=== PATIENT | male | born 1985 | race Caucasian/White ===

== ENCOUNTER 2018-05-19 09:48 | Emergency (ER) | payer OTHER, MEDICAID ==
[2018-05-19] MEDS ORDERED: ONDANSETRON 4 MG TAB.RAPDIS PO ONE (10:07)
--- NOTE | 2018-05-19 10:10 | ER Document Report ---
ED Medical Screen (RME) - General Chief Complaint: Groin Pain Stated Complaint: GROIN PAIN Time Seen by Provider: 05/19/18 10:01 Primary Care Provider: JAIRO DOVE MD [Primary Care Provider] - Follow up as needed TRAVEL OUTSIDE OF THE [place] IN LAST 30 DAYS: No - HPI Notes: 05/19/18 10:07 Patient is a 32-year-old male with no significant past medical history who presents the emergency department complaining of right testicular/scrotal pain and lower suprapubic pressure with urinary urgency/frequency that began yesterday about 13 hours ago. Patient states that he started feeling some soreness when he was playing softball and was running the bases, but has not noticed any swelling or bulging. He has some associated nausea with the pain, but no vomiting. He is having normal bowel movements. Patient has not had any urethral discharge and has no concern of STD or STI. Denies any headache, fever, URI, sore throat, chest pain, palpitations, syncope, cough, shortness of breath, wheeze, dyspnea, vomiting/diarrhea, or rash. I have treated and performed a rapid initial assessment of this patient. A comprehensive ED assessment and evaluation of the patient, analysis of test results and completion of medical decision making process will be conducted by additional ED providers. PHYSICAL EXAMINATION: GENERAL: Well-appearing, well-nourished and in no acute distress. A&Ox4. Answers questions appropriately. LUNGS: Breath sounds clear to auscultation bilaterally and equal. No wheezes rales or rhonchi. HEART: Regular rate and rhythm without murmurs, rubs, gallops. ABDOMEN: Soft, nondistended abdomen. No guarding, no rebound. Normal bowel sounds present. No CVA tenderness bilaterally. : no obvious urethral discharge or hernia appreciated. + tenderness and mild swelling rt testicle. + tenderness primarily near the epididymal area. No ulcerations, lesions, erythema, or necrosis. No transverse lie and cremasteric appears intact. Extremities: No cyanosis, clubbing, or edema b/l. NEUROLOGICAL: Normal speech, normal gait. PSYCH: Normal mood, normal affect. - Related Data Allergies/Adverse Reactions: No Known Allergies Allergy (Verified 05/19/18 10:01) Past Medical History - Social History Frequency of alcohol use: None Drug Abuse: None Renal/ Medical History: Denies: Hx Peritoneal Dialysis Musculoskeltal Medical History: Reports Hx Arthritis Psychiatric Medical History: Reports: Hx Anxiety, Hx Depression, Hx Post Traumatic Stress Disorder Traumatic Medical History: Reports: Hx Traumatic Brain Injury - Immunizations Hx Diphtheria, Pertussis, Tetanus Vaccination: Yes Physical Exam - Vital signs Vitals: Temp Pulse Resp BP Pulse Ox 98.1 F 67 15 140/75 H 99 05/19/18 09:58 05/19/18 09:58 05/19/18 09:58 05/19/18 09:58 05/19/18 09:58 Course - Vital Signs Vital signs: Temp Pulse Resp BP Pulse Ox 98.1 F 67 15 140/75 H 99 05/19/18 09:58 05/19/18 09:58 05/19/18 09:58 05/19/18 09:58 05/19/18 09:58 Doctor's Discharge - Discharge Referrals: JAIRO DOVE MD [Primary Care Provider] - Follow up as needed
[2018-05-19 10:53] LABS: APPEARANCE,URINE SLIGHTLY-CLOUDY; BILIRUBIN,URINE NEGATIVE (NEGATIVE); COLOR,URINE YELLOW; GLUCOSE, URINE NEGATIVE (NEGATIVE); KETONES,URINE NEGATIVE (NEGATIVE); LEUKOCYTE ESTERASE,URINE MODERATE (NEGATIVE); NITRITE,URINE NEGATIVE (NEGATIVE); PROTEIN,URINE NEGATIVE (NEGATIVE); URINE SPECIFIC GRAVITY 1.024; UROBILINOGEN,URINE NEGATIVE mg/dL (<2.0)
[2018-05-19] MEDS ORDERED: ACETAMINOPHEN 325 MG TABLET PO ONE (11:30)
--- NOTE | 2018-05-19 11:30 | ER Document Report ---
ED General - General Chief Complaint: Groin Pain Stated Complaint: GROIN PAIN Time Seen by Provider: 05/19/18 10:01 Primary Care Provider: JAIRO DOVE MD [NO LOCAL MD] - Follow up as needed TRAVEL OUTSIDE OF THE [place] IN LAST 30 DAYS: No - HPI Notes: Patient is a 32-year-old male that presents to the emergency department for chief complaint of right testicular pain. Patient states his pain started yesterday afternoon while playing softball. It gradually worsened. The pain is been constant and sharp in nature. He states it is worse with palpation and movement. He denies any left testicular pain or penile discharge. He denies concern for STD. He does report some dysuria that began today. He denies any fevers or chills. He denies direct trauma to the area. Past Medical History: Negative Past Surgical History: Negative Social History: Daily tobacco. Denies alcohol and drug use Family History: Reviewed and noncontributory for presenting illness Allergies: Reviewed, see documented allergy list. REVIEW OF SYSTEMS: CONSTITUTIONAL : No fever No chills No diaphoresis No recent illness EENT: No vision changes No congestion No sore throat CARDIOVASCULAR: No chest pain No palpitations RESPIRATORY: No shortness of breath No cough No difficulty breathing GASTROINTESTINAL: No abdominal pain No nausea No vomiting No diarrhea GENITOURINARY: dysuria Right testicular pain No hematuria No difficulty urinating MUSCULOSKELETAL: No back pain No leg pain No arm pain SKIN: No rashes No lesions LYMPHATIC: No swollen, enlarged glands. NEUROLOGICAL: No lightheadedness No headache No weakness No paresthesias PSYCHIATRIC: No anxiety No depression PHYSICAL EXAMINATION: Vital signs reviewed, nursing noted reviewed. GENERAL: Well-appearing, well-nourished and in no acute distress. HEAD: Atraumatic, normocephalic. EYES: Eyes appear normal, extraocular movements intact, sclera anicteric, conjunctiva are normal. ENT: nares patent, oropharynx clear without exudates. Moist mucous membranes. NECK: Normal range of motion, supple without lymphadenopathy LUNGS: Breath sounds clear to auscultation bilaterally and equal. No wheezes rales or rhonchi. HEART: Regular rate and rhythm without murmurs ABDOMEN: Soft, nontender, normoactive bowel sounds. No rebound, guarding, or rigidity. No masses appreciated. : Circumcised penis with no penile discharge or tenderness. No penile lesions. No scrotal edema or erythema. Normal left testicle exam. Diffuse tenderness to palpation of right testicle with no appreciable masses or edema. No inguinal hernia bilaterally. EXTREMITIES: Nontender, good range of motion, no pitting or edema. NEUROLOGICAL: No focal neurological deficits. Moves all extremities spontaneously Motor and sensory grossly intact on exam. PSYCH: Normal mood, normal affect. SKIN: Warm, Dry, normal turgor, no rashes or lesions noted on exposed skin - Related Data Allergies/Adverse Reactions: No Known Allergies Allergy (Verified 05/19/18 10:01) Past Medical History - Social History Smoking Status: Never Smoker Frequency of alcohol use: None Drug Abuse: None Family History: Reviewed & Not Pertinent Patient has suicidal ideation: No Patient has homicidal ideation: No Renal/ Medical History: Denies: Hx Peritoneal Dialysis Musculoskeletal Medical History: Reports Hx Arthritis Psychiatric Medical History: Reports: Hx Anxiety, Hx Depression, Hx Post Trauma tic Stress Disorder Traumatic Medical History: Reports: Hx Traumatic Brain Injury - Immunizations Hx Diphtheria, Pertussis, Tetanus Vaccination: Yes Physical Exam - Vital signs Vitals: Temp Pulse Resp BP Pulse Ox 98.1 F 67 15 140/75 H 99 05/19/18 09:58 05/19/18 09:58 05/19/18 09:58 05/19/18 09:58 05/19/18 09:58 Course - Re-evaluation Re-evalutation: 05/19/18 14:00 Vitals reviewed. Nursing notes reviewed. Patient does have tenderness along his right testicle and ultrasound was obtained to evaluate for torsion or infection. His ultrasound was unremarkable however he does have moderate leuks in his urine concerning for possible epididymitis or orchitis. Patient will be started on doxycycline. He did have some relief after Tylenol. He is remained hemodynamically stable and afebrile. Gonorrhea and Chlamydia were negative. Patient was counseled on return precautions and verbalized understanding. He will be discharged home in stable condition. Laboratory 05/19/18 05/19/18 10:06 10:06 Urine Color YELLOW Urine Appearance SLIGHTLY-CLOUDY Urine pH 6.0 Ur Specific [place] 1.024 Urine Protein NEGATIVE Urine Glucose (UA) NEGATIVE Urine Ketones NEGATIVE Urine Blood NEGATIVE Urine Nitrite NEGATIVE Urine Bilirubin NEGATIVE Urine Urobilinogen NEGATIVE Ur Leukocyte Esterase MODERATE H Urine WBC (Auto) 2 Urine RBC (Auto) 1 Squamous Epi Cells Auto 1 Urine Mucus (Auto) RARE Urine Ascorbic Acid NEGATIVE Chlamydia DNA (PCR) NOT DETECTED N.gonorrhoeae DNA (PCR) NOT DETECTED Scrotum Ultrasound 05/19/18 10:06 IMPRESSION: 1. NORMAL SCROTAL ULTRASOUND. NO EVIDENCE OF TESTICULAR MASS OR TORSION. - Vital Signs Vital signs: Temp Pulse Resp BP Pulse Ox 98.1 F 67 15 140/75 H 99 05/19/18 09:58 05/19/18 09:58 05/19/18 09:58 05/19/18 09:58 05/19/18 09:58 - Laboratory Laboratory results interpreted by me: 05/19/18 10:06 Ur Leukocyte Esterase MODERATE H Discharge - Discharge Clinical Impression: Epididymitis, Testicle pain Condition: Stable Disposition: HOME, SELF-CARE Instructions: Epididymitis ([facility]), Doxycycline ([facility]) Additional Instructions: Please return to the emergency department if you have any worsening, or concern of your symptoms. Please return to the emergency department if you develop chest pain, difficulty breathing, severe abdominal pain, or ongoing vomiting. Please follow-up with your primary care physician in 2-3 days and any other recommended physicians. If prescribed, take all medications as directed. If you have any questions or concerns do not hesitate to return the emergency department for evaluation. Prescriptions: Doxycycline Hyclate 100 mg PO BID #14 capsule Referrals: JAIRO DOVE MD [NO LOCAL MD] - Follow up in 1 week
[2018-05-19 12:16] LABS: CHLAM PCR NOT DETECTED (NOT DETECT); GON PCR NOT DETECTED (NOT DETECT)
--- NOTE | 2018-05-19 13:38 | RADIOLOGY REPORT (SQ) ---
EXAM DESCRIPTION: U/S SCROTUM W/DOPPLER COMPLETED DATE/TIME: 05/19/2018 1:00 pm REASON FOR STUDY: Rt testicular pain COMPARISON: None. TECHNIQUE: Static and realtime zarate scale imaging of the scrotum and testes. Selected color Doppler and spectral images recorded to document blood flow. LIMITATIONS: None. FINDINGS: RIGHT: TESTICLE: The right testicle measures 3.8 x 3.1 x 2.2 cm. Normal size. Normal echotexture. Normal blood flow. No mass. EPIDIDYMIS: The head of the epididymis measures 0.9 x 0.7 x 0.5 cm. Normal. HYDROCELE OR VARICOCELE: No. HERNIA OR EXTRA-TESTICULAR MASS: No. OTHER: No other significant finding. LEFT: TESTICLE: The left testicle measures 3.9 x 2.5 x 2.1 cm. Normal size. Normal echotexture. Normal b lood flow. No mass. EPIDIDYMIS: The head of the epididymis measures 1.1 x 0.7 x 0.9 cm. Normal. HYDROCELE OR VARICOCELE: No. HERNIA OR EXTRA-TESTICULAR MASS: No. OTHER: No other significant finding. IMPRESSION: 1. NORMAL SCROTAL ULTRASOUND. NO EVIDENCE OF TESTICULAR MASS OR TORSION. TECHNICAL DOCUMENTATION: JOB ID: [id number] [employer]- All Rights Reserved Reading location - IP/workstation name: [email or web address]
[2018-05-19] MEDS ORDERED: DOXYCYCLINE HYCLATE 100 MG TABLET PO ONE (13:54)
[2018-05-19 14:25] VITALS: BP 129/78
== END 2018-05-19 14:24 | disposition home or self-care (01) ==
LOC: ER 09:48
DX: N45.1 Epididymitis (principal); N50.811 Right testicular pain; F17.210 Nicotine dependence, cigarettes, uncomplicated
CPT/HCPCS: 99284; 87086; 81001; 87491; 87591; 76870; 93976; S0119

== ENCOUNTER 2018-06-04 22:54 | Emergency (ER) | payer OTHER, MEDICAID ==
[2018-06-05] MEDS ORDERED: ACETAMINOPHEN 325 MG TABLET PO ONE (01:43)
[2018-06-05] MEDS ORDERED: MIDAZOLAM 2 MG/2 ML INJ IM ONE (02:04)
[2018-06-05] MEDS ORDERED: LIDOCAINE 4% TRANSPARENT DRESSING 5 GM KIT TP ONE (02:05)
[2018-06-05] MEDS ORDERED: LIDOCAINE 1% INJ-PF (10 MG/ML) 30 ML SDV INJ ONE (02:32)
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
[2018-06-05 04:48] VITALS: BP 111/65
== END 2018-06-05 04:48 | disposition home or self-care (01) ==
LOC: ER 22:54
PROC: 0CQ1XZZ Repair Lower Lip, External Approach (ICD-10-PCS; principal; 2018-06-04)
DX: S01.511A Laceration without foreign body of lip, initial encounter (principal); R68.84 Jaw pain; W21.07XA Struck by softball, initial encounter; Y93.64 Activity, baseball
CPT/HCPCS: 99282; 70110; 12013; J2250; J3490 ×2

== ENCOUNTER 2018-10-12 14:23 | Emergency (ER) | payer OTHER, MEDICAID ==
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
[2018-10-12] MEDS ORDERED: IBUPROFEN 800 MG TABLET PO ONE (15:09)
[2018-10-12 15:14] LABS: ABSOLUTE BASOPHILS # (AUTO) 0.1 10^3/uL (0.0-0.2); ABSOLUTE EOSINOPHILS # (AUTO) 0.1 10^3/uL (0.0-0.6); ABSOLUTE LYMPHOCYTES (AUTO) 2.1 10^3/uL (0.5-4.7); ABSOLUTE MONOCYTES (AUTO) 0.8 10^3/uL (0.1-1.4); ABSOLUTE NEUT (AUTO) 7.5 10^3/uL (1.7-8.2); EOSINOPHILS % (AUTO) 1.1 % (0-6); HEMATOCRIT 38.1 % (37.9-51.0); HEMOGLOBIN 13.4 g/dL (13.5-17.0); LYMPHOCYTES % (AUTO) 19.5 % (13-45); MEAN CORPUSCULAR HEMOGLOBIN 33.5 pg (27.0-33.4); MEAN CORPUSCULAR VOLUME 96 fl (80-97); MONOCYTES % (AUTO) 7.6 % (3-13); PLATELET COUNT 206 10^3/uL (150-450); RED BLOOD COUNT 3.99 10^6/uL (4.35-5.55); RED CELL DISTRIBUTION WIDTH 13.3 % (11.5-14.0); SEGMENTED NEUTROPHILS % (AUTO) 70.8 % (42-78); TOTAL CELLS COUNTED % (AUTO) 100 %; WHITE BLOOD COUNT 10.6 10^3/uL (4.0-10.5)
[2018-10-12 15:38] LABS: ANION GAP 7 (5-19); BLOOD UREA NITROGEN 13 mg/dL (7-20); CALCIUM 9.2 mg/dL (8.4-10.2); CARBON DIOXIDE 30 mmol/L (22-30); CHLORIDE 99 mmol/L (98-107); GLUCOSE 83 mg/dL (75-110)
--- NOTE | 2018-10-12 15:58 | RADIOLOGY REPORT (SQ) ---
EXAM DESCRIPTION: CT FACIAL AREA WITH COMPLETED DATE/TIME: 10/12/2018 3:36 pm REASON FOR STUDY: facial swelling, eval abscess COMPARISON: None. TECHNIQUE: Post contrast images through the facial bones and orbits windowed for bone and soft tissu e. Additional coronal and sagittal reconstructed images reviewed. All images stored on PACS. All CT scanners at this facility use dose modulation, iterative reconstruction, and/or weight based d osing when appropriate to reduce radiation dose to as low as reasonably achievable (ALARA). [facility]: Dose Right [facility]: CareDose [facility]: Dose Right [facility]: Teradose 4D [facility]: Stormpulse CONTRAST TYPE AND DOSE: contrast/concentration: Isovue 350.00 mg/ml; Total Contrast Delivered: 59.0 ml; Total Saline Delivered: 55.0 ml RENAL FUNCTION: None required. The patient is less than 50 years old. RADIATION DOSE: 996 mGy cm LIMITATIONS: None. FINDINGS: FACIAL BONES: No fracture. Periapical lucency about the upper left canine (series 2, imag e 35). ORBITS: Intact. No fracture. Symmetric intact globes and retroorbital soft tissues. PARANASAL SINUSES: Clear. No significant mucosal thickening, mass or fluid. No nasal polyps. Maxilla ry sinus outlets are patent. SOFT TISSUES: There is a rim enhancing 8 mil periodontal fluid collection about the upper left canine (Series 4, image 35). INFERIOR BRAIN: Limited view. No acute findings. OTHER: No other significant finding. IMPRESSION: Periapical lucency about the upper left canine with associated 8 mm rim enhancing period ontal fluid collection, findings consistent with abscess of dental origin. TECHNICAL DOCUMENTATION: JOB ID: [id number] Quality ID # [id number]: Final reports with documentation of one or more dose reduction techniques (e.g., Au tomated exposure control, adjustment of the mA and/or kV according to patient size, use of iterative reconstruction technique) 2010 [employer]- All Rights Reserved Reading location - IP/workstation name: [email or web address]
[2018-10-12 16:47] VITALS: BP 124/77
== END 2018-10-12 16:48 | disposition home or self-care (01) ==
LOC: ER 14:23
DX: K04.7 Periapical abscess without sinus (principal); R22.0 Localized swelling, mass and lump, head; F41.9 Anxiety disorder, unspecified; F17.210 Nicotine dependence, cigarettes, uncomplicated
CPT/HCPCS: 36415; 70487; 80048; 85025; 99284